=== PATIENT | female | born 1985 | race Caucasian/White ===

== ENCOUNTER 2016-10-05 06:00 | Inpatient (IN) | payer MEDICAID ==
[~2016-10-05] VITALS: Ht 157.5 cm; Wt 75.0 kg
[~2016-10-05 06:00] MED LIST: PREN-39 PO
[2016-10-05 06:17] VITALS: Ht 157.5 cm; Wt 75.0 kg
[2016-10-05 06:18] VITALS: BP 117/75; PULSE 87; RESP 18
[2016-10-05] MEDS ORDERED: OXYTOCIN 30 UNITS/LR 500 ML IV SCH ×2 (06:30→07:00)
[2016-10-05] MEDS ORDERED: METHYLERGONOVINE 0.2 MG INJ IM PRN ×2 (06:30→16:30)
[2016-10-05] MEDS ORDERED: OXYTOCIN 30 UNITS/LR 500 ML IV PRN ×2 (06:30→16:30)
[2016-10-05] MEDS ORDERED: MISOPROSTOL 200 MCG TAB PR PRN ×2 (06:30→16:30)
[2016-10-05] MEDS ORDERED: CARBOPROST 250 MCG INJ IM PRN ×2 (06:30→16:30)
[2016-10-05] MEDS ORDERED: CEFAZOLIN 2 GM/50 ML (PMX) 50 ML IV SCH (06:30)
[2016-10-05] MEDS: LACTATED RINGER'S 1,000 ML IV SCH ×3 (06:54→16:14)
[2016-10-05] MEDS ORDERED: EPHEDrine SULFATE 50 MG/5 ML SYG ONE (07:00)
[2016-10-05 07:03] LABS: EOSINOPHILS # 0.1 10^3/ul (0.0-0.5); EOSINOPHILS % 1.3 % (0.0-7.0); HEMATOCRIT 34.8 % (37.0-47.0); HEMOGLOBIN 11.5 g/dl (12.0-16.0); LYMPHOCYTES # 1.5 10^3/ul (0.8-2.9); LYMPHOCYTES % 32.5 % (15.0-51.0); MEAN CORPUSCULAR HEMOGLOBIN 28.3 pg (29.0-33.0); MEAN CORPUSCULAR VOLUME 85.7 fl (82.0-101.0); MONOCYTE # 0.5 10^3/ul (0.3-0.9); MONOCYTES % 9.6 % (0.0-11.0); NEUTROPHIL # 2.6 10^3/ul (1.6-7.5); NEUTROPHILS % 56.4 % (39.0-77.0); PLATELET COUNT 213 10^3/UL (140-415); RED BLOOD COUNT 4.06 10^6/ul (4.20-5.40); RED CELL DISTRIBUTION WIDTH 14.3 % (11.5-14.5); WHITE BLOOD COUNT 4.7 10^3/ul (4.8-10.8)
[2016-10-05 07:04] LABS: ADD SCAN DIFF YES
[2016-10-05 07:25] LABS: INR 0.97; PROTIME 12.9 Sec (12.2-14.2)
[2016-10-05 07:26] LABS: PARTIAL THROMBOPLASTIN TIME 22.4 Sec (25.0-35.0)
[2016-10-05] MEDS ORDERED: morphine SULFATE/PF (10 MG/10 ML) INJ ONE (11:55)
[2016-10-05] MEDS ORDERED: PHENYLephrine (100 MCG/ML) 5ML SYG ONE (11:55)
[2016-10-05] MEDS ORDERED: ONDANSETRON 4 MG INJ IV PRN ×3 (13:00→17:00)
[2016-10-05] MEDS ORDERED: METOCLOPRAMIDE 10 MG INJ IV PRN (13:00)
[2016-10-05] MEDS ORDERED: DIPHENHYDRAMINE 50 MG INJ IV PRN ×3 (13:00→17:00)
[2016-10-05] MEDS ORDERED: KETOROLAC 30 MG INJ IV ONE (13:00)
[2016-10-05] MEDS ORDERED: KETOROLAC 30 MG INJ IV PRN ×2 (13:00→17:00)
[2016-10-05] MEDS ORDERED: NALOXONE (0.4 MG/ML) INJ IV PRN ×2 (13:00→17:00)
[2016-10-05] MEDS ORDERED: PROCHLORPERAZINE 10 MG INJ IV PRN (13:00)
[2016-10-05] MEDS ORDERED: MEPERIDINE 25 MG INJ IV PRN (13:00)
[2016-10-05] MEDS ORDERED: HYDROmorphONE (0.2 MG/ML) 10ML SYG IV PRN ×3 (13:00)
[2016-10-05] MEDS ORDERED: HYDROmorphONE 1 MG/ML SYG IV PRN ×5 (13:00→17:00)
[2016-10-05] MEDS ORDERED: ALBUTEROL 0.083% (NEB) 2.5 MG/3 ML AMP HHN ONE (13:00)
--- NOTE | 2016-10-05 15:35 | HP ---
Date/Time of Note Date/Time of Note DATE: 10/05/16 TIME: 15:34 OB - History Hx of Present Free Text/Dictation term preg. for repeat c/s and BTL Care: Good Care Ultrasounds: Normal mid trimester US Obstetrical Complications: None Medical Complications: None Past Family/Social History * Past Medical, Surgical, Family and Obstetric Histories reviewed from chart. OB Admission Exam Vital Signs Vital Signs Vital Signs Date Time Temp Pulse Resp B/P Pulse Ox O2 Delivery O2 Flow Rate FiO2 10/05/16 12:23 94 21 10/05/16 06:18 98.3 87 18 117/75 Room Air Physical Exam HEENT: WNL Heart: Rhythm Normal Lungs: Clear, Equal Abdomen: WNL Extremities: Normal Reflexes: Normal Last 72 hours Lab Results CBC & BMP 10/05/16 06:20 OB Assessment/Plan Reason for admission: section Plan: Section HARMAN DELAROSA MD October 05, 2016 15:35
--- NOTE | 2016-10-05 15:37 | OPR ---
Operative Report Planned Procedure Procedure date October 05, 2016 Performed by: HARMAN DELAROSA MD Assisting provider: ROOPA LEVY MD Anesthesia Type: spinal Procedure Description Under satisfactory spinal anesthesia, the patient was prepped and draped and placed in a supine position, tilted to the left. Pfannenstiel incision was made , carried through the subcutaneous tissue. Bleeders brought under control with electrocautery. Fascia incised to the length of the incision. Rectus muscles from the fascia, divided midline. Peritoneum exposed, entered through a transverse incision. Exploration of abdomen revealed gravid uterus. Bladder flap was developed. Transverse incision was made in the lower segment of the uterus. Amniotic sac ruptured. clear amniotic fluid noted. [] Nasal oropharyngeal suction was performed. The baby was handed to the team for immediate attention. The placenta was delivered manually intact. Uterine cavity was cleaned with wet sponge and drainage established. Uterus closed in 2 layers using one monocryl in continuous fashion. The right and left tube were tied and cut . Peritoneal cavity irrigated with warm saline. Sponge, needle and instrument count reported to be correct. Abdominal peritoneum closed with [] continuously. Rectus muscle approximated with []. Fascia closed with [one monocryl], and skin closed with aracelis. Estimated blood loss [700]mL. Urine bag contained []mL of urine Post-Procedure Findings: Live Baby [], Apgars [] and [], weight [], position [], [] presentation []cord. Physician Certification I, the undersigned physician, hereby certify that I have discussed the procedure described in this consent form with this patient (or the patient's legal outbound telemarketing representative), including: * The risk and benefits of the procedure; * Any adverse reactions that may reasonably be expected to occur; * Any alternative efficacious methods of treatment which may be medically viable ; * The potential problems that may occur during recuperation; * Potential for blood transfusion and associated risks/benefits; and * Any research or economic interest I may have regarding this treatment. I further certify that the patient/legally responsible person was encouraged to ask question and that all questions were answered. HARMAN DELAROSA MD October 05, 2016 15:37
[2016-10-05 15:45] VITALS: BP 123/66; PULSE 74; RESP 18
[2016-10-05 16:15] VITALS: BP 117/70; PULSE 71; RESP 18
[2016-10-05] MEDS ORDERED: NACL 0.9% 3 ML SYG IV SCH (16:30)
[2016-10-05] MEDS ORDERED: ACETAMINOPHEN/CODEINE #3 TAB PO PRN (16:30)
[2016-10-05] MEDS ORDERED: LANOLIN 7 GM TUBE TOP PRN (16:30)
[2016-10-05] MEDS ORDERED: NA PHOSPHATE/BIPHOS 133 ML ENEMA PR PRN (16:30)
[2016-10-05] MEDS: OXYTOCIN 30 UNITS/LR 500 ML IV SCH ×2 (16:59→21:02)
[2016-10-05] MEDS ORDERED: ZOLPIDEM 5 MG TAB PO PRN (17:00)
[2016-10-05 17:15] VITALS: BP 112/70; PULSE 69; RESP 18
[2016-10-05 20:00] VITALS: BP 115/60; PULSE 73; RESP 20
[2016-10-06] VITALS: BP 110/66; PULSE 70; RESP 18
[2016-10-06] MEDS: LACTATED RINGER'S 1,000 ML IV SCH ×2 (01:32→08:14)
[2016-10-06 04:00] VITALS: BP 108/51; PULSE 85; RESP 20
--- NOTE | 2016-10-06 07:41 | CONS ---
Date/Time of Note Date/Time of Note DATE: 10/06/16 TIME: 07:40 Consultation Date/Type/Reason Admit Date/Time October 05, 2016 at 06:00 Initial Consult Date 10/06/16 Type of Consultation: Anesthesiology Reason for Consultation Follow up 24 HR Interval Summary Free Text/Dictation Pt seen and examined at bedside is POD#1 s/p c/s. Pt received spinal duramorph for post op pain control. She states she currently has minimal pain in her abdomen but is doing well. No N/V/D/C/MARK/Numbness. Will follow. Constitutional: improved, no complaints Exam/Review of Systems Vital Signs Vitals Vital Signs Date Time Temp Pulse Resp B/P Pulse Ox O2 Delivery O2 Flow Rate FiO2 10/06/16 04:00 99.0 85 20 108/51 Room Air 10/05/16 15:45 100 10/05/16 12:23 21 Intake and Output 10/05/16 10/05/16 10/06/16 15:00 23:00 07:00 Intake Total 2250 ml 1000 ml 810 ml Output Total 1800 ml 800 ml 1150 ml Balance 450 ml 200 ml -340 ml Results Result Diagram: 10/05/16 0620 Medications Medications Current Medications Lactated Ringer's (Lr) 1,000 ml @ 125 mls/hr Q8H IV Last administered on t 01:32; Admin Dose 125 MLS/HR; Start 10/05/16 at 16:14 Acetaminophen/ Codeine Phosphate (Tylenol No.3) 2 tab Q4H PRN PO PAIN LEVEL 7- 10; Start 10/05/16 at 16:30 Oxycodone/ Acetaminophen (Percocet (5/ 325)) 2 tab Q4H PRN PO PAIN LEVEL 7-10; Start 10/05/16 at 16:30 Ibuprofen (Motrin) 800 mg Q8 PO ; Start 10/06/16 at 14:00 Simethicone (Mylicon) 160 mg Q8H PRN PO DISTENSION/GAS/BLOATING; Start at 16:30 Sodium Biphosphate/ Sodium Phosphate (Fleet Enema) 133 ml DAILY PRN HI CONSTIPATION; Start 10/05/16 at 16:30 Diphtheria/ Tetanus/Acell Pertussis (Adacel) 0.5 ml ONCE ONCE IM* ; Start at 09:00; Stop 10/08/16 at 09:01 Measles/Mumps/ Rubella Vaccine Live 0.5 ml 0.5 ml ONCE ONCE SC* ; Start at 09:00; Stop 10/08/16 at 09:01 Oxytocin/Lactated Ringer's 500 ml @ 0 mls/hr ONCE PRN IV For Hemorrhage Management; Start 10/05/16 at 16:30 Methylergonovine Maleate (Methergine) 0.2 mg ONCE PRN IM VAGINAL BLEEDING; Start 10/05/16 at 16:30 Carboprost Tromethamine (Hemabate) 250 mcg ONCE PRN IM VAGINAL BLEEDING; Start 10/05/16 at 16:30 Misoprostol (Cytotec) 1,000 mcg ONCE PRN HI VAGINAL BLEEDING; Start 10/05/16 at 16:30 Naloxone HCl (Narcan) 0.1 mg Q2M PRN IV FOR RESP RATE 8 OR LESS; Start at 17:00; Stop 10/06/16 at 16:59 Ketorolac Tromethamine (Toradol) 30 mg Q6H PRN IV PAIN Last administered on 04:28; Admin Dose 30 MG; Start 10/05/16 at 17:00; Stop 10/06/16 at 16:59 Hydromorphone HCl (Dilaudid) 0.2 mg Q3H PRN IV BREAKTHROUGH PAIN Last administered on 10/05/16 16:55; Admin Dose 0.2 MG; Start 10/05/16 at 17:00; Stop 10/06/16 at 16:59 Hydromorphone HCl (Dilaudid) 0.2 mg Q3H PRN IV PAIN LEVEL 1-5; Start 10/05/16 at 17:00; Stop 10/06/16 at 16:59 Hydromorphone HCl (Dilaudid) 0.4 mg Q3H PRN IV PAIN LEVEL 6-10; Start 10/05/16 at 17:00; Stop 10/06/16 at 16:59 Diphenhydramine HCl (Benadryl) 25 mg Q6H PRN IV ITCHING Last administered on 17:29; Admin Dose 25 MG; Start 10/05/16 at 17:00; Stop 10/06/16 at 16:59 Ondansetron HCl (Zofran Inj) 4 mg Q6H PRN IV NAUSEA AND/OR VOMITING; Start at 17:00; Stop 10/06/16 at 16:59 PRASHANT RODRIGUEZ October 06, 2016 07:41
[2016-10-06 08:00] VITALS: BP 104/63; PULSE 79; RESP 18
[2016-10-06] MEDS: OXYCODONE/ACETAMINOPHEN (5/325) TAB PO PRN (12:06)
[2016-10-06 12:10] LABS: ADD SCAN DIFF NO
[2016-10-06 12:15] LABS: BASOPHILS % 0.2 % (0.0-2.0); EOSINOPHILS % 0.5 % (0.0-7.0); HEMATOCRIT 29.8 % (37.0-47.0); HEMOGLOBIN 9.9 g/dl (12.0-16.0); LYMPHOCYTES # 0.9 10^3/ul (0.8-2.9); LYMPHOCYTES % 14.8 % (15.0-51.0); MEAN CORPUSCULAR HEMOGLOBIN 28.8 pg (29.0-33.0); MEAN CORPUSCULAR HGB CONC 33.2 g/dl (32.0-37.0); MEAN CORPUSCULAR VOLUME 86.6 fl (82.0-101.0); MEAN PLATELET VOLUME 12.5 fl (7.4-10.4); MONOCYTE # 0.4 10^3/ul (0.3-0.9); NEUTROPHIL # 4.7 10^3/ul (1.6-7.5); NEUTROPHILS % 77.2 % (39.0-77.0); PLATELET COUNT 194 10^3/UL (140-415); RED BLOOD COUNT 3.44 10^6/ul (4.20-5.40); RED CELL DISTRIBUTION WIDTH 14.6 % (11.5-14.5); WHITE BLOOD COUNT 6.1 10^3/ul (4.8-10.8)
[2016-10-06] MEDS: IBUPROFEN 800 MG TAB PO SCH ×2 (15:04→21:30)
[2016-10-06 20:40] VITALS: BP 118/65; PULSE 77; RESP 18
[2016-10-07 03:50] VITALS: BP 105/71; PULSE 75; RESP 17
[2016-10-07] MEDS: IBUPROFEN 800 MG TAB PO SCH ×3 (05:32→22:14)
[2016-10-07 08:30] VITALS: BP 122/68; PULSE 87; RESP 18
[2016-10-07] MEDS: OXYCODONE/ACETAMINOPHEN (5/325) TAB PO PRN (10:06)
[2016-10-07 16:00] VITALS: BP 111/72; PULSE 68; RESP 18
--- NOTE | 2016-10-07 18:43 | QN ---
Documentation Comment Progress note POD #2 Pt feeling well. Good pain control. +BM. T=98.3 BP 111/72. Fundus firm, NT. Incision clean, dry and intact. No evidence of infection. Ext NT, 1+ edema. P: Cont. care. Plan D/C 10/08. ROBERT OLVERA MD October 07, 2016 18:43
[2016-10-07 19:30] VITALS: BP 112/61; PULSE 75; RESP 18
[2016-10-08 03:10] VITALS: BP 94/50; PULSE 74; RESP 18
[2016-10-08] MEDS: IBUPROFEN 800 MG TAB PO SCH ×2 (05:35→15:01)
[2016-10-08 07:45] VITALS: BP 107/60; PULSE 75; RESP 18
[2016-10-08] MEDS ORDERED: MEASLES,MUMPS,RUBELLA VACCINE INJ SC* ONE (09:00)
[2016-10-08] MEDS ORDERED: DIPHTH/TET/ACEL PERTUSS (ADULT) 0.5 ML VIAL IM* ONE (09:00)
--- NOTE | 2016-10-08 10:28 | DS ---
Date/Time of Note Date/Time of Note DATE: 10/08/16 TIME: 10:27 Obstetrical Discharge Record Final Diagnosis Final Diagnosis: Term delivered Section Section: Repeat Condition on Discharge Physical Assessment Voiding: Yes Bowel Movement: Yes Breast: Soft, non-tender Fundus: Firm Abdomen and Incision: CDI Calf Tenderness: No Patient Condition: Stable FEDERICO MCMULLEN MD October 08, 2016 10:28
== END 2016-10-08 16:20 | disposition home or self-care (01) | DRG 766 ==
LOC: L-D 06:00 → PP1 15:53
PROVIDERS: ADMIT Obstetrics & Gynecology; ATTEND Obstetrics & Gynecology
PROC: 0UB70ZZ Excision of Bilateral Fallopian Tubes, Open Approach (ICD-10-PCS; 2016-10-05)
PROC: 10D00Z1 Extraction of Products of Conception, Low, Open Approach (ICD-10-PCS; principal; 2016-10-05 15:00)
DX: O34.219 Maternal care for unspecified type scar from previous cesarean delivery (principal); Z30.2 Encounter for sterilization; Z3A.39 39 weeks gestation of pregnancy; Z37.0 Single live birth
CPT/HCPCS: 85025; 85610; 85730; 86592; 86850; 86900; 86901; 87340; 88302; 90715; 94760; 99464; J0690; J1170; J1200; J1885; J2274; J2370; J2590; J7120